=== PATIENT | female | born 1995 | race African-American/Black ===

== ENCOUNTER 2024-05-21 21:31 | Emergency (ER) | payer MEDICAID, OTHER ==
[~2024-05-21] VITALS: Ht 160 cm; Wt 55.0 kg
[2024-05-21 21:43] VITALS: TEMP 97.8; O2SAT 100
[2024-05-21] MEDS: ONDANSETRON HCL 4MG/2ML INJ IV STA (22:07)
[2024-05-21] MEDS: FAMOTIDINE 20MG/2ML VIAL IV ONE (22:07)
[2024-05-21] MEDS: SODIUM CHLORIDE 0.9% 1,000 ML IV ONE (22:07)
[2024-05-21 22:27] LABS: BASOPHILS % 0.1 % (0.0-2.0); DIFFERENTIAL COMMENT 0; HEMOGLOBIN. 11.4 g/dL (12.0-16.0); LYMPHOCYTES % 13.1 % (20.0-50.0); MEAN CORPUSCULAR HEMOGLOBIN 24.7 pg (28.0-32.0); MEAN CORPUSCULAR HGB CONC 32.6 g/dL (31.0-37.0); MEAN CORPUSCULAR VOLUME 75.7 fL (81.0-99.0); MEAN PLATELET VOLUME 8.8 fl (7.4-10.4); NEUTROPHILS % 81.8 % (40.0-76.0); PLATELET 146 x1000/uL (130-400); RED BLOOD CELL COUNT 4.63 mill/uL (4.2-5.4); RED CELL DISTRIBUTION WIDTH 14.6 % (11.6-14.6); WHITE BLOOD COUNT 7.2 x1000/uL (4.5-11.0)
[2024-05-21 22:38] LABS: CHLORIDE 108 mEq/L (98-107); POTASSIUM 3.6 mEq/L (3.5-5.1); SODIUM 143 mEq/L (136-145)
[2024-05-21 22:39] LABS: CALCIUM 9.8 mg/dL (8.7-10.4); CARBON DIOXIDE 26 mEq/L (21-32)
[2024-05-21 22:43] LABS: CREATININE 0.7 mg/dL (0.6-1.0); GLUCOSE 110 mg/dL (70-105)
[2024-05-21 22:44] LABS: UREA NITROGEN BLOOD 7 mg/dL (9-23)
[2024-05-21 22:45] LABS: ALANINE AMINOTRANSFERASE 8 IU/L (10-49)
[2024-05-21 22:46] LABS: ALBUMIN 4.7 g/dL (3.2-4.8); ASPARTATE AMINOTRANSFERASE 19 IU/L (<34); BILIRUBIN TOTAL 0.6 mg/dL (0.1-1.0); PROTEIN TOTAL 7.6 g/dL (6.0-8.3)
[2024-05-21 22:58] LABS: HCG SCREEN NEGATIVE
[2024-05-21] MEDS: KETOROLAC 30MG/ML VIAL IV STA (23:02)
[2024-05-21] MEDS: HALOPERIDOL LACTATE 5MG/ML VIAL IM ONE (23:13)
[2024-05-21] MEDS ORDERED: ONDA4TAB50 PO (23:54)
[2024-05-22 00:04] VITALS: BP 102/42; PULSE 96; RESP 16; O2SAT 97
== END 2024-05-22 00:04 | disposition home or self-care (01) ==
LOC: ER 21:31
DX: R10.11 Right upper quadrant pain (principal); R11.2 Nausea with vomiting, unspecified; R19.7 Diarrhea, unspecified
CPT/HCPCS: 80053; 84703; 83690; 85025; 36415; 71045; 76705; 96361; 96372; 96374; 96375; 99285; J3490; J1630; J1885; J2405; J7030; Z7610

== ENCOUNTER 2024-05-23 04:13 | Emergency (ER) | payer MEDICAID ==
[~2024-05-23] VITALS: Ht 167.6 cm; Wt 62.0 kg
[~2024-05-23 04:13] MED LIST: ONDA4TAB50 PO
[2024-05-23 04:14] VITALS: BP 121/70; PULSE 75; RESP 18; TEMP 98.5; O2SAT 100
== END 2024-05-23 04:30 | disposition home or self-care (01) ==
LOC: ER 04:13
DX: R10.9 Unspecified abdominal pain (principal); Z53.21 Procedure and treatment not carried out due to patient leaving prior to being seen by health care provider